=== PATIENT | male | born 1990 | race Hispanic/Latino ===

== ENCOUNTER 2017-02-26 10:53 | Emergency (ER) | payer OTHER ==
[2017-02-26] MEDS ORDERED: Metoclopramide HCl 10 MG/2 ML VIAL ONE (11:35)
[2017-02-26 12:17] LABS: #Basophils 0.1 thou/uL (0.0-0.2); #Eosinphils 0.3 thou/uL (0.0-0.7); #Lymphocytes 3.6 thou/uL (1.20-3.40); #Monocytes 0.8 thou/uL (0.11-0.59); #Neutrophils 5.2 thou/uL (1.40-6.50); %Basophils 0.8 % (0.0-1.0); %Eosinophils 3.1 % (0.0-10.0); %Lymphocytes 35.7 % (21.0-51.0); %Monocytes 8.2 % (0.0-10.0); Hematocrit 47.7 % (42.0-52.0); Mean Platelet Volume 6.6 fL (7.4-10.4)
[2017-02-26 12:33] LABS: Lactic Acid - Sepsis 1.3 mmol/L (0.5-2.2)
[2017-02-26 12:37] LABS: ALT (SGPT) 42 U/L (8-55); AST (SGOT) 32 U/L (5-34); Alkaline Phosphatase 60 U/L (40-150); Anion Gap 11 mmol/L (10-20); BUN (Urea Nitrogen) 12 mg/dL (8.9-20.6); Bilirubin, Total 0.5 mg/dL (0.2-1.2); Calc. Creatinine Clearance 0 mL/min (70-130); Carbon Dioxide 27 mmol/L (22-29); Chloride 102 mmol/L (98-107); Estimated GFR-MDRD Greater than 90; Globulin 3.5 g/dL (2.4-3.5); Protein, Total 7.7 g/dL (6.0-8.3)
--- NOTE | 2017-02-26 12:46 | CT ---
CT BRAIN NONCONTRAST: HISTORY: 26-year-old male with headache. FINDINGS: The ventricles are normal in size and configuration. There is no midline shift or any other mass ef fect. There is no evidence of acute intracranial hemorrhage, large cortical infarct, or extraaxial fluid collection. The wood matter /white matter differentiation is maintained. The calvarium is in tact. The tympanomastoid cavities, and the upper portions of the paranasal sinuses included in thes e images, are grossly clear. IMPRESSION: Normal. shante POS: [facility]
--- NOTE | 2017-02-26 12:46 | RAD ---
RADIOGRAPH CHEST 1 VIEW: HISTORY: A 26-year-old male with acute cough and fever. FINDINGS: There are no air space densities, pulmonary edema, pneumothorax, or cardiomegaly. The lateral costo phrenic angles are sharp. IMPRESSION: No acute cardiopulmonary findings. shante [] POS: ABI
[2017-02-26] MEDS ORDERED: Ketorolac Tromethamine 30 MG/ML VIAL ONE (13:01)
[2017-02-26] MEDS ORDERED: Dexamethasone 4 mg/ml Vial ONE (13:01)
[2017-02-26 14:00] LABS: Bilirubin Negative (Negative); Blood, Urine Negative (Negative); Glucose, Urine (Dipstick) Negative (Negative); Ketone, Urine Negative (Negative); Nitrite Negative (Negative); Protein, Urine (Dipstick) Negative (Neg-Trace); Urobilinogen 0.2 mg/dL (0.2-1.0)
== END 2017-02-26 14:27 | disposition home or self-care (01) ==
LOC: ERS 10:53
DX: R51 Headache (principal); R50.9 Fever, unspecified
CPT/HCPCS: 36415; 70450; 71010; 80053; 81003; 83605; 85025; 87040; 87081; 87149; 87430; 96365; 96366; 96375; J1100; J1885; J2765

== ENCOUNTER 2018-01-04 21:32 | Emergency (ER) | payer OTHER, SELFPAY ==
[2018-01-04] MEDS ORDERED: Meclizine HCl 25 MG TAB ONE (22:29)
--- NOTE | 2018-01-05 08:13 | CT ---
CT HEAD NONCONTRAST: Date: 01/04/18 COMPARISON: 02/26/17. INDICATION: Post-traumatic pain. FINDINGS: There is frontal scalp hematoma. Ventricular system is normal in size. 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 No intracranial hemorrhage, mass effect, or midline shift. IMPRESSION: 1. No acute intracranial abnormalities. 2. Frontal scalp hematoma. POS: [facility]
== END 2018-01-05 01:04 | disposition home or self-care (01) ==
LOC: ERS 21:32
DX: S06.0X9A Concussion with loss of consciousness of unspecified duration, initial encounter (principal); Y04.0XXA Assault by unarmed brawl or fight, initial encounter
CPT/HCPCS: 70450

== ENCOUNTER 2018-05-01 08:13 | Emergency (ER) | payer SELFPAY | END 2018-05-01 09:12 | disposition home or self-care (01) | LOC: ERS 08:13 | DX: M54.5 Low back pain (principal); F17.210 Nicotine dependence, cigarettes, uncomplicated | CPT/HCPCS: 99283 ==

== ENCOUNTER 2018-07-25 20:25 | Emergency (ER) | payer SELFPAY ==
[2018-07-25] MEDS ORDERED: Diazepam 5 MG TAB ONE (22:04)
== END 2018-07-25 22:22 | disposition home or self-care (01) ==
LOC: ERS 20:25
DX: R42 Dizziness and giddiness (principal); F17.210 Nicotine dependence, cigarettes, uncomplicated
CPT/HCPCS: 93005

== ENCOUNTER 2021-11-14 18:00 | Outpatient (CLI) | payer BC | END 2021-11-14 18:01 | disposition home or self-care (01) | LOC: SLEEPLAB 18:00 | PROVIDERS: ATTEND Family Medicine Sports Medicine | DX: G47.33 Obstructive sleep apnea (adult) (pediatric) (principal); I10 Essential (primary) hypertension; K21.9 Gastro-esophageal reflux disease without esophagitis; G47.00 Insomnia, unspecified; F90.9 Attention-deficit hyperactivity disorder, unspecified type; R06.83 Snoring | CPT/HCPCS: 95800 ==

== ENCOUNTER 2022-01-03 19:30 | Outpatient (CLI) | payer BC | END 2022-01-03 19:31 | disposition home or self-care (01) | LOC: SLEEPLAB 19:30 | PROVIDERS: ATTEND Family Medicine Sports Medicine | DX: G47.33 Obstructive sleep apnea (adult) (pediatric) (principal) | CPT/HCPCS: 95811 ==

== ENCOUNTER 2024-03-28 16:04 | Emergency (ER) | payer BC ==
[2024-03-28] MEDS ORDERED: Lorazepam 2 MG/ML VIAL ONE (16:20)
[2024-03-28] MEDS ORDERED: Meclizine HCl 25 MG TAB ONE (16:20)
== END 2024-03-28 19:03 | disposition home or self-care (01) ==
LOC: ERS 16:04
DX: H81.13 Benign paroxysmal vertigo, bilateral (principal); Z55.6 Problems related to health literacy
CPT/HCPCS: 70450; 96372; J2060